=== PATIENT | female | born 1995 | race Caucasian/White ===

== ENCOUNTER 2025-02-05 06:00 | Day surgery (SDC) | payer BC ==
[2025-02-05] MEDS ORDERED: propofoL 500 MG/50 ML 50 ML ONE ×2 (06:26→07:54)
[2025-02-05] MEDS ORDERED: Propofol 200 MG/20 ML SDV ONE (06:33)
[2025-02-05] MEDS ORDERED: fentaNYL 250 MCG/5 ML SDV ONE (06:34)
[2025-02-05] MEDS ORDERED: Ketorolac 30 MG/ML SDV ONE (06:35)
[2025-02-05] MEDS ORDERED: dexmedeTOMIDine HCl 200 MCG/2 ML SDV ONE (06:35)
[2025-02-05] MEDS ORDERED: Ondansetron 4 MG/2 ML SDV ONE (06:35)
[2025-02-05] MEDS: Lactated Ringers 1,000 ML IV SCH (06:35)
[2025-02-05] MEDS ORDERED: Dexamethasone 4 MG/ML 5 ML MDV ONE (06:35)
[2025-02-05 06:41] LABS: BASOPHILS ABSOLUTE AUTO 0.0 K/mm3 (0.0-0.2); BASOPHILS PERCENT AUTO 0.4 % (0.0-1.0); EOSINOPHILS ABSOLUTE AUTO 0.7 K/mm3 (0.0-0.4); EOSINOPHILS PERCENT AUTO 7.1 % (0.0-6.0); IMMATURE GRAN ABSOLUTE AUTO 0.02 K/mm3 (0.00-0.05); IMMATURE GRAN PERCENT AUTO 0.2 % (0.0-0.4); LYMPHOCYTES ABSOLUTE AUTO 2.8 K/mm3 (1.0-4.8); LYMPHOCYTES PERCENT AUTO 28.5 % (24.0-44.0); MEAN PLATELET VOLUME 9.3 fl (9.4-12.3); MONOCYTES ABSOLUTE AUTO 0.6 K/mm3 (0.0-0.8); MONOCYTES PERCENT AUTO 6.3 % (0.0-8.0); NEUTROPHILS ABSOLUTE AUTO 5.6 K/mm3 (1.8-7.7); NEUTROPHILS PERCENT AUTO 57.5 % (41.0-71.0); NRBC ABSOLUTE 0.00 (0.00-0.02); NRBC PERCENT 0.0 % (0.0-0.2); PLATELET COUNT,PLT 321 K/mm3 (150-400); RED BLOOD CELL COUNT 4.91 M/mm3 (4.10-5.30); WHITE BLOOD CELL COUNT,WBC 9.70 K/mm3 (3.9-11.3)
[2025-02-05] MEDS ORDERED: Midazolam 1 MG/ML 2 ML SDV ONE (06:41)
[2025-02-05 06:57] LABS: BLOOD UREA NITROGEN,BUN 6 mg/dL (7-18); CARBON DIOXIDE,CO2 26 mEq/L (21-32); CHLORIDE,CL 107 mEq/L (98-107); CREATININE 0.7 mg/dL (0.55-1.02); ESTIMATED GFR 119 mL/min (>60); GLUCOSE RANDOM 106 mg/dL (70-99); POTASSIUM,K 3.7 mEq/L (3.5-5.1); SODIUM,NA 141 mEq/L (136-145)
[2025-02-05] MEDS: Lidocaine 1% with EPINEPHrine 1:100,000 20 ML MDV ONE (08:00)
[2025-02-05] MEDS ORDERED: fentaNYL 100 MCG/2 ML SDV ONE (08:01)
[2025-02-05] MEDS ORDERED: Ondansetron 4 MG/2 ML SDV IVPUSH PRN (09:12)
[2025-02-05] MEDS ORDERED: fentaNYL 100 MCG/2 ML SDV IVPUSH PRN (09:12)
[2025-02-05] MEDS: Acetaminophen/oxyCODONE 325-5 MG Tab PO ONE (10:06)
== END 2025-02-05 12:30 | disposition home or self-care (01) ==
LOC: JD.SDS 06:00
PROVIDERS: ATTEND Obstetrics & Gynecology
DX: N83.8 Other noninflammatory disorders of ovary, fallopian tube and broad ligament (principal); Z88.8 Allergy status to other drugs, medicaments and biological substances; Z91.018 Allergy to other foods; Z79.899 Other long term (current) drug therapy
CPT/HCPCS: 36415; 58552; 80048; 81025; 85025; 86850; 86900; 86901; A9270; J0665; J0690; J1100; J1885; J2004; J2250; J2405; J2704; J3010; J7120; 00944; J1171; J3490